=== PATIENT | male | born 1945 | race Asian ===

== ENCOUNTER 2018-02-16 05:34 | Emergency (ER) | payer OTHER ==
[~2018-02-16] VITALS: Ht 185.4 cm; Wt 108.0 kg
[2018-02-16] MEDS ORDERED: OMEPRAZOLE40 MG PO (05:57)
[2018-02-16 10:40] VITALS: BP 151/85
== END 2018-02-16 10:45 | disposition home or self-care (01) ==
LOC: ED 05:34
PROC: 0RSKXZZ Reposition Left Shoulder Joint, External Approach (ICD-10-PCS; principal; 2018-02-16)
DX: S43.085A Other dislocation of left shoulder joint, initial encounter (principal)
CPT/HCPCS: 96374; 96375; 99284; J1885; J2175; J2405; J3490

== ENCOUNTER 2018-03-28 12:02 | Emergency (ER) | payer OTHER ==
[~2018-03-28] VITALS: Ht 185.4 cm; Wt 108.0 kg
[~2018-03-28 12:02] MED LIST: OMEPRAZOLE40 MG PO
[2018-03-28 12:16] VITALS: TEMP 97.9
[2018-03-28 13:03] LABS: PLATELET COUNT 146 K/uL (142-355)
[2018-03-28 13:15] LABS: POTASSIUM 3.3 mmol/L (3.6-5.2)
[2018-03-28 14:32] VITALS: BP 130/74
== END 2018-03-28 14:32 | disposition home or self-care (01) ==
LOC: ED 12:02
DX: M50.80 Other cervical disc disorders, unspecified cervical region (principal); M47.892 Other spondylosis, cervical region; M06.9 Rheumatoid arthritis, unspecified
CPT/HCPCS: 80053; 85027; 85651; 96372; 99283; J1885

== ENCOUNTER 2019-07-08 10:36 | Emergency (ER) | payer OTHER ==
[~2019-07-08] VITALS: Ht 185.4 cm; Wt 98.4 kg
[2019-07-08 11:05] LABS: PLATELET COUNT 130 K/uL (142-355)
[2019-07-08] MEDS ORDERED: MONT10TA PO (11:07)
[2019-07-08] MEDS ORDERED: CARV6.25 PO (11:07)
[2019-07-08] MEDS ORDERED: COZAAR100 MG PO (11:08)
[2019-07-08] MEDS ORDERED: METF500T PO (11:08)
[2019-07-08] MEDS ORDERED: LIPITOR20 MG PO (11:09)
[2019-07-08 11:12] LABS: POTASSIUM 3.2 mmol/L (3.6-5.2)
[2019-07-08 12:42] VITALS: BP 178/104; TEMP 98.5
== END 2019-07-08 12:42 | disposition home or self-care (01) ==
LOC: ED 10:36
PROVIDERS: Emergency Medicine
DX: J18.9 Pneumonia, unspecified organism (principal); J40 Bronchitis, not specified as acute or chronic
CPT/HCPCS: 80053; 85027; 87502; 87651; 99283